=== PATIENT | female | born 1975 | race Caucasian/White ===

== ENCOUNTER 2020-04-18 06:00 | Day surgery (SDC) | payer OTHER ==
[~2020-04-18 06:00] MED LIST: NAPROXEN SODIU550 MG PO; TENORMIN50 M1 PO; ZYRTEC10 M3 PO
[2020-04-18] MEDS ORDERED: IBU600 MG PO (08:28)
== END 2020-04-18 13:40 | disposition home or self-care (01) ==
LOC: CIR.AMB 06:00
PROVIDERS: ATTEND Obstetrics & Gynecology Gynecology
DX: N84.0 Polyp of corpus uteri (principal); Z20.828 Contact with and (suspected) exposure to other viral communicable diseases